=== PATIENT | male | born 1975 | race Two or more races ===

== ENCOUNTER → 2019-03-25 | Outpatient (CLI) | payer OTHER ==
[~2019-03-25] MED LIST: LOVA20TA2 PO; METF500T17 PO
[2019-03-25 09:10] LABS: BASOPHILS # (AUTO) 0.03 x10^3/uL (0-0.1); BASOPHILS % (AUTO) 1 % (0-1); EOSINOPHILS # (AUTO) 0.07 x10^3/uL (0-0.4); EOSINOPHILS % (AUTO) 1 % (1-7); LYMPHOCYTES # (AUTO) 1.84 x10^3/uL (1-3.4); LYMPHOCYTES % (AUTO) 35 % (22-44); MD NO; MEAN CORPUSCULAR HEMOGLOBIN 30.6 pg (27.5-34.5); MEAN CORPUSCULAR HGB CONC 33.9 g/dL (33.2-36.2); MEAN CORPUSCULAR VOLUME 90.5 fL (81-97); MEAN PLATELET VOLUME 8.9 fL (7.4-10.4); MONOCYTES # (AUTO) 0.33 x10^3/uL (0.2-0.8); MONOCYTES % (AUTO) 6 % (2-9); NEUTROPHILS # (AUTO) 3.02 x10^3/uL (1.8-6.8); NEUTROPHILS % (AUTO) 57 % (42-75); PLATELET COUNT 231 x10^3/uL (130-400); RED BLOOD COUNT 5.41 x10^6/uL (4.38-5.82); RED CELL DISTRIBUTION WIDTH 13.1 % (9.4-14.8)
[2019-03-25 09:21] LABS: INTERNATIONAL NORMALIZED RATIO 0.98 (0.93-1.1); PROTHROMBIN TIME 10.4 Seconds (9.6-11.5)
[2019-03-25 09:22] LABS: ALBUMIN 3.9 g/dL (3.4-5.0); ANION GAP 8 mmol/L (5-15); CALCIUM 9.1 mg/dL (8.5-10.1); CHLORIDE 111 mmol/L (98-107)
[2019-03-25 09:25] LABS: ALANINE AMINOTRANSFERASE 25 U/L (12-78); ALKALINE PHOSPHATASE 82 U/L (45-117); BILIRUBIN,TOTAL 0.4 mg/dL (0.2-1.0); CREATININE 0.87 mg/dL (0.7-1.3); TOTAL PROTEIN 7.8 g/dL (6.4-8.2)
== END | disposition home or self-care (01) ==
LOC: EDSEX 07:46 → STAR 07:46
PROVIDERS: ATTEND Orthopaedic Surgery
DX: Z01.818 Encounter for other preprocedural examination (principal); M16.12 Unilateral primary osteoarthritis, left hip
CPT/HCPCS: 36415; 80053; 83036; 85025; 85610; 85730; 87081; 87806; 93005; G0475

== ENCOUNTER 2019-03-30 06:39 | Observation (INO) | payer OTHER ==
[~2019-03-30] VITALS: Ht 167.6 cm; Wt 96.8 kg
[2019-03-30] MEDS ORDERED: LACTATED RINGERS 1,000 ML IV SCH (07:06)
[2019-03-30 07:21] VITALS: BP 118/78
[2019-03-30] MEDS ORDERED: SCOPOLAMINE PATCH, 1.5MG PATCH.TD72 TD ONE (07:30)
[2019-03-30] MEDS ORDERED: ACETAMINOPHEN 500 MG TABLET PO ONE (07:30)
[2019-03-30] MEDS ORDERED: LIDOCAINE-MPF 1%, 2ML INFIL ONE (07:30)
[2019-03-30] MEDS ORDERED: GABAPENTIN 300 MG CAPSULE PO ONE (07:30)
[2019-03-30] MEDS ORDERED: MIDAZOLAM 1 MG/ML, 2ML ONE (08:00)
[2019-03-30] MEDS ORDERED: FENTANYL PF 250 MCG/5ML ONE (08:01)
[2019-03-30] MEDS ORDERED: VANCOMYCIN 1,000 MG ONE (08:42)
[2019-03-30] MEDS ORDERED: KETOROLAC 60 MG/2 ML ONE (08:42)
[2019-03-30] MEDS ORDERED: TRANEXAMIC ACID 100 MG/ML, 10ML ONE (08:42)
[2019-03-30] MEDS ORDERED: EPINEPHRINE 1 MG/ML, 1ML ONE (08:42)
[2019-03-30] MEDS ORDERED: ROPIvacaine/PF 0.2%, 20 ML ONE (08:42)
[2019-03-30] MEDS ORDERED: SODIUM CHLORIDE 0.9% 100 ML ONE (08:43)
[2019-03-30] MEDS ORDERED: MAGNESIUM HYDROXIDE 8%, 30ML UDC PO PRN (09:00)
[2019-03-30] MEDS ORDERED: ONDANSETRON 4 MG TABLET PO PRN (09:00)
[2019-03-30] MEDS: PREGABALIN 75 MG CAPSULE PO SCH ×2 (09:00→23:07)
[2019-03-30] MEDS ORDERED: OXYcodone IR 5MG TABLET PO PRN (09:00)
[2019-03-30] MEDS ORDERED: ALUMINUM/MAG/SIMETHICONE 30 ML UDC PO PRN (09:00)
[2019-03-30] MEDS ORDERED: SENNA/DOCUSATE TABLET PO PRN (09:00)
[2019-03-30] MEDS ORDERED: POLYETHYLENE GLYCOL 17 GM PACKET PO PRN (09:00)
[2019-03-30] MEDS ORDERED: TRANEXAMIC ACID 1,000 MG in SODIUM CHLORIDE 0.9% 100 ML IVPB ONE (09:00)
[2019-03-30] MEDS ORDERED: DIPHENHYDRAMINE 50 MG/ML, 1ML IVPush PRN (09:00)
[2019-03-30] MEDS ORDERED: PSYLLIUM PACKET PO PRN (09:00)
[2019-03-30] MEDS ORDERED: DIPHENHYDRAMINE 25 MG CAPSULE PO PRN (09:00)
[2019-03-30] MEDS ORDERED: HYDROmorphone 1 MG/ML, 1ML INJ IVPush PRN (09:00)
[2019-03-30] MEDS ORDERED: ONDANSETRON 2MG/ML, 2ML IV PRN (09:00)
[2019-03-30] MEDS ORDERED: SUCCINYLCHOLINE 20 MG/ML, 10ML ONE (09:20)
[2019-03-30] MEDS ORDERED: PROPOFOL 10 MG/ML, 20ML ONE (09:20)
[2019-03-30] MEDS ORDERED: DEXAMETHASONE 4 MG/ML, 1ML ONE (09:20)
[2019-03-30] MEDS ORDERED: CEFAZOLIN 1,000 MG ONE (09:20)
[2019-03-30] MEDS ORDERED: ONDANSETRON 2MG/ML, 2ML ONE (09:20)
[2019-03-30] MEDS ORDERED: ROCURONIUM 10 MG/ML,10ML ONE (09:20)
[2019-03-30] MEDS ORDERED: DIAZEPAM 5 MG/ML, 2ML IV PRN ×2 (10:00)
[2019-03-30] MEDS ORDERED: HYDROmorphone 1 MG/ML, 1ML INJ IV PRN (10:00)
[2019-03-30] MEDS ORDERED: MEPERIDINE/PF 25MG/0.5ML IVPush PRN (10:00)
[2019-03-30] MEDS ORDERED: ALBUTEROL SULFATE 2.5 MG/3 ML NPPB PRN (10:00)
[2019-03-30] MEDS ORDERED: METOCLOPRAMIDE 5 MG/ML, 2ML IV PRN (10:00)
[2019-03-30] MEDS ORDERED: PROMETHAZINE 25 MG/ML, 1ML IV PRN (10:00)
[2019-03-30] MEDS ORDERED: hydrALAzine 20 MG/ML, 1ML IV PRN (10:00)
[2019-03-30] MEDS ORDERED: ONDANSETRON 2MG/ML, 2ML IVPush PRN (10:00)
[2019-03-30] MEDS ORDERED: KETOROLAC 30 MG/1 ML IV PRN (10:00)
[2019-03-30] MEDS ORDERED: LABETALOL 5MG/ML, 20ML IV PRN (10:00)
[2019-03-30] MEDS ORDERED: OXYcodone 5 MG/5 ML ORAL.SOL UDC PO PRN (10:00)
[2019-03-30] MEDS: FENTANYL PF 100 MCG/2ML IV PRN ×3 (11:15→11:32)
[2019-03-30] MEDS ORDERED: FENTANYL PF 100 MCG/2ML ONE (11:16)
[2019-03-30] MEDS ORDERED: OXYcodone 5 MG/5 ML ORAL.SOL UDC ONE (11:16)
[2019-03-30] MEDS ORDERED: HYDROmorphone 1 MG/ML, 1ML INJ ONE (11:33)
[2019-03-30 12:09] VITALS: BP 125/85
[2019-03-30] MEDS ORDERED: DEXAMETHASONE 4 MG/ML, 1ML IVPush SCH (12:30)
[2019-03-30] MEDS: DOCUSATE 100 MG CAPSULE PO SCH ×2 (12:54→21:00)
[2019-03-30] MEDS: POTASSIUM CHLORIDE 20 MEQ in D5%-0.45% NACL 1,000 ML IV SCH (12:54)
[2019-03-30] MEDS: TAMSULOSIN 0.4 MG CAP.ER.24H PO SCH (12:54)
[2019-03-30] MEDS: KETOROLAC 30 MG/1 ML IV SCH ×4 (12:54→23:08)
[2019-03-30] MEDS: metFORMIN 500 MG TABLET PO SCH (16:51)
[2019-03-30] MEDS: CEFAZOLIN PMX 1GM/50ML 50 ML IVPB SCH (16:52)
[2019-03-30] MEDS: ASPIRIN 81 MG TABLET EC PO SCH ×2 (16:52→21:00)
[2019-03-30 19:09] VITALS: BP 128/77
[2019-03-30] MEDS: LOVASTATIN 20 MG TABLET PO SCH (23:08)
[2019-03-30 23:39] VITALS: BP 93/51
[2019-03-31] MEDS: POTASSIUM CHLORIDE 20 MEQ in D5%-0.45% NACL 1,000 ML IV SCH ×3 (00:22→19:18)
[2019-03-31] MEDS: CEFAZOLIN PMX 1GM/50ML 50 ML IVPB SCH (01:33)
[2019-03-31 03:43] VITALS: BP 94/57
[2019-03-31] MEDS: KETOROLAC 30 MG/1 ML IV SCH (05:00)
[2019-03-31 05:54] LABS: CREATININE 0.85 mg/dL (0.7-1.3)
[2019-03-31 06:41] VITALS: BP 101/61
[2019-03-31] MEDS ORDERED: KETOROLAC 30 MG/1 ML IV SCH (07:00)
[2019-03-31] MEDS: metFORMIN 500 MG TABLET PO SCH ×2 (08:05→17:30)
[2019-03-31] MEDS: PREGABALIN 75 MG CAPSULE PO SCH ×2 (09:54→21:05)
[2019-03-31] MEDS: DOCUSATE 100 MG CAPSULE PO SCH ×2 (09:54→21:05)
[2019-03-31] MEDS: TAMSULOSIN 0.4 MG CAP.ER.24H PO SCH (09:54)
[2019-03-31] MEDS: ASPIRIN 81 MG TABLET EC PO SCH ×2 (09:54→21:05)
[2019-03-31 14:16] VITALS: BP 92/56
[2019-03-31] MEDS ORDERED: ACETAMINOPHEN 325 MG TABLET PO PRN (16:00)
[2019-03-31] MEDS ORDERED: ACETAMINOPHEN 325 MG TABLET ONE (16:02)
[2019-03-31 18:43] VITALS: BP 92/57
[2019-03-31] MEDS: LOVASTATIN 20 MG TABLET PO SCH (21:05)
[2019-04-01 00:23] VITALS: BP 98/61
[2019-04-01] MEDS: POTASSIUM CHLORIDE 20 MEQ in D5%-0.45% NACL 1,000 ML IV SCH (04:22)
[2019-04-01 07:42] VITALS: BP 99/62
[2019-04-01] MEDS: ASPIRIN 81 MG TABLET EC PO SCH (08:15)
[2019-04-01] MEDS: TAMSULOSIN 0.4 MG CAP.ER.24H PO SCH (08:16)
[2019-04-01] MEDS: DOCUSATE 100 MG CAPSULE PO SCH (08:16)
[2019-04-01] MEDS: metFORMIN 500 MG TABLET PO SCH (08:16)
[2019-04-01] MEDS: PREGABALIN 75 MG CAPSULE PO SCH (08:16)
[2019-04-01] MEDS ORDERED: ASPI81TA45 PO (08:26)
[2019-04-01 13:50] VITALS: BP 105/66
== END 2019-04-01 15:00 | disposition home or self-care (01) ==
LOC: EDSEX → OUT 06:39 → ORIP 08:46 → 4NE 12:02 → DCLOUNGE 04-01 14:55
PROVIDERS: ADMIT Orthopaedic Surgery; ATTEND Orthopaedic Surgery
DX: M87.852 Other osteonecrosis, left femur (principal); Z96.642 Presence of left artificial hip joint
CPT/HCPCS: 27132; 36415; 72170; 82565; 82962; 85014; 85018; 86850; 86900; 96365; 96366; 96375; 96376; 97162; 97165; 97530; C1776; G0378; J0171; J0330; J0690; J1100; J1170; J1885; J2250; J2405; J2704; J2795; J3010; J3370; J3480; J7120